=== PATIENT | female | born 1945 | race Two or more races ===

== ENCOUNTER 2022-03-02 09:43 | Emergency (ER) | payer OTHER ==
[~2022-03-02] VITALS: Ht 154.9 cm; Wt 59.4 kg
[~2022-03-02 09:43] MED LIST: EVISTA60 MG PO; PROCARDIA90 MG/BLIS PO; TENORMIN100 MG PO
[2022-03-02] MEDS ORDERED: LEVOTHYROXINE25 MCG (10:21)
== END 2022-03-02 13:36 | disposition home or self-care (01) ==
LOC: ER 09:43
DX: J40 Bronchitis, not specified as acute or chronic (principal); B34.9 Viral infection, unspecified; I10 Essential (primary) hypertension; Z20.822 Contact with and (suspected) exposure to COVID-19